=== PATIENT | female | born 1930 ===

== ENCOUNTER 2018-02-17 03:57 | Inpatient (IN) | payer MEDICARE, MEDICAID ==
[2018-02-17] MEDS ORDERED: Azithromycin 500mg/250ML NS 500 MG/250 ML BAG IV STA (04:19)
[2018-02-17] MEDS ORDERED: cefTRIAXone IV 1 gm in Dextros 50 ML IV STA (04:19)
[2018-02-17] MEDS ORDERED: Sodium Chloride 0.9% 1,000 ML IV ONE (04:19)
[2018-02-17] MEDS ORDERED: Promethazine/Cod 6.25mg-10mg/5ml Syr UD PO STA (04:20)
[2018-02-17] MEDS ORDERED: Albuterol 0.083% Inhal Sol (2.5 mg/3 mL) UD IH STA (04:34)
[2018-02-17] MEDS ORDERED: Albuterol 0.083% Inhal Sol (2.5 mg/3 mL) UD ONE (04:46)
--- NOTE | 2018-02-17 04:46 | C.PDOC ---
History Of Present Illness <Abbey Shaw - Last Filed: 02/17/18 06:16> <Nicole Shipman - Last Filed: 02/17/18 06:46> 87 yo female w/PMhx of CHF, CAD, NIDDM, PVD s/p femoral bypass, visits from [place], come in accompanied by family member for evaluation of cold sx for past 2 days associated with malaise, subjective fever, dry cough. As per family , since early today developed some chest tightness with cough, (+) intermittent wheezing. Similar sx family member as well. Otherwise, pt denies high fever, dizziness, neck pain, drooling, dysphagia, dyspnea, chest pain, palpitation, diaphoresis, abd. pain, N/V, back pain, UTI sx. Ambulate to Ed for evaluation, not in any apparent distress. Occasional dry cough noted. (Abbey Shaw) History Per: Patient, Family Onset/Duration Of Symptoms: Gradual <Abbey Shaw - Last Filed: 02/17/18 06:16> <Nicole Shipman - Last Filed: 02/17/18 06:46> Time Seen by Provider: 02/17/18 04:18 Chief Complaint (Nursing): Fever Past Medical History Reviewed: Vital Signs - Medical History PMH: CAD, CHF, Dementia, Diabetes, HTN, Hypercholesterolemia Family History: States: No Known Family Hx - Social History Hx Tobacco Use: No Hx Alcohol Use: No Hx Substance Use: No - Immunization History Hx Tetanus Toxoid Vaccination: No Hx Influenza Vaccination: No Hx Pneumococcal Vaccination: Yes <Abbey Shaw - Last Filed: 02/17/18 06:16> Vital Signs: Last Vital Signs Temp 99 F 02/17/18 04:05 Pulse 96 H 02/17/18 04:05 Resp 20 02/17/18 04:05 BP 125/77 02/17/18 04:05 Pulse Ox 96 02/17/18 06:21 Review Of Systems Except As Marked, All Systems Reviewed And Found Negative. Constitutional: Positive for: Fever, Malaise Eyes: Negative for: Vision Change ENT: Positive for: Nose Discharge, Nose Congestion. Negative for: Ear Discharge , Throat Swelling Cardiovascular: Negative for: Chest Pain, Palpitations, Orthopnea, Edema, Light Headedness Respiratory: Positive for: Cough, Wheezing. Negative for: Shortness of Breath, Hemoptysis, SOB with Excertion, Sputum Gastrointestinal: Negative for: Nausea, Vomiting, Abdominal Pain, Diarrhea Genitourinary: Negative for: Dysuria Musculoskeletal: Negative for: Neck Pain, Back Pain Skin: Negative for: Rash Neurological: Negative for: Altered Mental Status, Headache, Dizziness <Abbey Shaw - Last Filed: 02/17/18 06:16> Physical Exam - Physical Exam Appears: Well, Non-toxic, No Acute Distress Skin: Normal Color, Warm, Dry, No Rash Head: Normacephalic Eye(s): bilateral: PERRL Ear(s): Bilateral: Normal Nose: No Flaring, Discharge (B/L nasal congestion with scant clear rhinorrhea) Oral Mucosa: Moist, No Drooling Tongue: Normal Appearing Throat: Erythema (mild B/L), No Exudate, No Drooling Neck: Trachea Midline, Supple Cardiovascular: Rhythm Regular, No Murmur, No JVD, Other ((-) carotid bruits B/L ) Respiratory: No Decreased Breath Sounds, No Accessory Muscle Use, No Stridor, Wheezing (diffuse B/L expiratory wheezing. BS equal B/L) Gastrointestinal/Abdominal: Soft, No Tenderness, No Distention, No Guarding Back: No CVA Tenderness Extremity: Normal ROM, No Pedal Edema, No Deformity, No Swelling Neurological/Psych: Oriented x3, Normal Speech <JerrodJaye gonzaleznika - Last Filed: 02/17/18 06:16> ED Course And Treatment - Laboratory Results Result Diagrams: 02/17/18 04:50 02/17/18 04:50 Lab Interpretation: Abnormal ECG: Interpreted By Me, Viewed By Me ECG Rhythm: Sinus Rhythm O2 Sat by Pulse Oximetry: 96 Pulse Ox Interpretation: Normal - Radiology CXR: Interpreted by Me, Viewed By Me CXR Interpretation: Yes: Infiltrates (LLL?), Cardiomegaly Progress Note: On re-eval, pt remained unchanges, still c/o chest tightness. Remained afebrile, hemodynamicaly stable. Lungs: (+) mild improvement B/L exp wheezing, BS equal B/L. CVS: (+)S1S2, reg. Neurologicaly intact. Blood owrk review, no acute leukocytosis, dehydration, chr. anemia. CXR: (+) cardiomegaly , LLQ gera infiltrate? case discussed with and admission arranged. <Abbey Shaw - Last Filed: 02/17/18 06:16> - Laboratory Results Result Diagrams: 02/17/18 04:50 02/17/18 04:50 <Nicole Shipman - Last Filed: 02/17/18 06:46> Disposition - Disposition Disposition Time: 06:16 <Abbey Shaw - Last Filed: 02/17/18 06:16> <Nicole Shipman - Last Filed: 02/17/18 06:46> - Disposition Disposition: HOSPITALIZED Condition: STABLE Forms: [employer] (Citizen Of [place]) - Clinical Impression Clinical Impression: Pneumonia
[2018-02-17] MEDS ORDERED: cefTRIAXone IV 1 gm in Dextros 50 ML IVPB ONE (04:52)
[2018-02-17 04:57] LABS: URINE BILIRUBIN NEGATIVE (NEGATIVE); URINE BLOOD NEGATIVE (NEGATIVE); URINE CLARITY Clear (Clear); URINE COLOR Yellow (YELLOW); URINE GLUCOSE (UA) NORMAL (Normal); URINE LEUKOCYTE ESTERASE NEG Leu/uL (Negative); URINE PROTEIN NEGATIVE (NEGATIVE); URINE UROBILINOGEN NORMAL mg/dL (0.2-1.0)
[2018-02-17 04:59] LABS: BASO % 0.6 % (0.0-2.0); EOS # 0.4 K/uL (0.0-0.7); EOS % 4.5 % (0.0-4.0); HEMOGLOBIN 10.9 g/dL (11.0-16.0); LYMPH # 0.9 K/uL (1.0-4.3); LYMPH % 11.1 % (20.0-40.0); MEAN CELL VOLUME 97.1 fL (81.0-99.0); MEAN CORPUSCULAR HEMOGLOBIN 32.8 pg (27.0-31.0); MEAN CORPUSCULAR HGB CONC 33.8 g/dL (33.0-37.0); MEAN PLATELET VOLUME 8.6 fL (7.2-11.7); MONO % 12.8 % (0.0-10.0); NEUT # 5.6 K/uL (1.8-7.0); RBC 3.33 Mil/uL (3.80-5.20); RED CELL DISTRIBUTION WIDTH 13.6 % (11.5-14.5); WHITE BLOOD COUNT 7.9 K/uL (4.8-10.8)
[2018-02-17 05:08] LABS: ALB/GLOB RATIO 1.4 (1.0-2.1); ALBUMIN 4.2 g/dL (3.5-5.0); CALCIUM 8.2 mg/dl (8.6-10.4)
[2018-02-17] MEDS ORDERED: Promethazine/Cod 6.25mg-10mg/5ml Syr UD ONE (05:12)
--- NOTE | 2018-02-17 07:19 | CP.PCM.PN ---
Subjective - Date & Time of Evaluation Date of Evaluation: 02/17/18 Objective - Vital Signs/Intake and Output Vital Signs (last 24 hours): Temp Pulse Resp BP Pulse Ox 99 F 96 H 20 125/77 96 02/17/18 04:05 02/17/18 04:05 02/17/18 04:05 02/17/18 04:05 02/17/18 06:21 - Labs Labs: 02/17/18 04:50 02/17/18 04:50
[2018-02-17 07:58] VITALS: RESP 20
--- NOTE | 2018-02-17 09:59 | RAD ---
HISTORY: Pneumonia COMPARISON: No prior. TECHNIQUE: Chest PA and lateral FINDINGS: LUNGS: No active pulmonary disease. PLEURA: No significant pleural effusion identified. No pneumothorax apparent. CARDIOVASCULAR: Normal. OSSEOUS STRUCTURES: No significant abnormalities. VISUALIZED UPPER ABDOMEN: Normal. OTHER FINDINGS: None. IMPRESSION: No active disease.
--- NOTE | 2018-02-17 09:59 | CP.PCM.HP ---
History of Present Illness - History of Present Illness History of Present Illness: Patient seen and examined at approx 7:58 in Rm [id number]. Son present bedside. Family is unsure of Code status at this time. CC: I have a cold HPI: 87 year old female with past medical history significant for CHF, DM, PVD s /p femoral bypass, HTN, Hypercholesterolemia and dementia presents with complaints of cough and cold symptoms for the past 4 days. Patient was accompanied with son who helped supplement some of the history. Patient admits to a cough with productive white sputum. She admits to chest discomfort when she coughs. She has been in the area for approximately two weeks- visiting from [place]. She admits to nausea and an episode of non-bloody, nonbillious vomiting overnight. She denies fevers, chills, headaches, abdominal discomfort, or changes in bowel movements at this time. She denies recent sick contacts. PMHx- as stated above PSHx- appendectomy, cardiac cath in 2017 Fam Hx-Brother has DM, Renal disease runs in the family Medications- Ranitidine, Norvasc, Valsartan, Coreg, Lipitor, Fosamax, Januvia, Lasix, ASA Social- Denies tobacco, alcohol or illicit drug use Allergies- NKDA PMD- Unsure of name ( located in [place]) Present on Admission - Present on Admission Any Indicators Present on Admission: No Review of Systems - Review of Systems Systems not reviewed;Unavailable: Language Barrier - Constitutional Constitutional: absent: Fever, Headache - Cardiovascular Cardiovascular: Dyspnea - Respiratory Respiratory: Cough, Pain with Coughing. absent: Hemoptysis - Gastrointestinal Gastrointestinal: Nausea, Vomiting - Musculoskeletal Musculoskeletal: absent: Muscle Weakness, Myalgias - Integumentary Integumentary: absent: Rash, Skin Pain - Neurological Neurological: Memory Loss - Hematologic/Lymphatic Hematologic: absent: Easy Bleeding, Easy Bruising Past Patient History - Infectious Disease Hx of Infectious Diseases: None - Past Social History Smoking Status: Never Smoked Alcohol: None Drugs: Denies - CARDIAC Hx Congestive Heart Failure: Yes Hx Hypercholesterolemia: Yes Hx Hypertension: Yes - NEUROLOGICAL Hx Dementia: Yes - RENAL Hx Renal Failure: Yes - PSYCHIATRIC Hx Substance Use: No - SURGICAL HISTORY Hx Cardiac Catheterization: Yes - ANESTHESIA Hx Anesthesia: Yes Meds Allergies/Adverse Reactions: Allergies Allergy/AdvReac Type Severity Reaction Status Date / Time No Known Allergies Allergy Verified 02/17/18 04:15 Physical Exam - Constitutional Appears: Non-toxic, No Acute Distress - Head Exam Head Exam: ATRAUMATIC, NORMAL INSPECTION - Eye Exam Eye Exam: EOMI, Normal appearance Pupil Exam: NORMAL ACCOMODATION - ENT Exam ENT Exam: Mucous Membranes Moist - Neck Exam Neck exam: Positive for: Full Rom - Respiratory Exam Respiratory Exam: Rales, NORMAL BREATHING PATTERN. absent: Wheezes - Cardiovascular Exam Cardiovascular Exam: +S1, +S2, Systolic Murmur. absent: Tachycardia - GI/Abdominal Exam GI & Abdominal Exam: Soft. absent: Firm, Guarding, Tenderness - Extremities Exam Extremities exam: Positive for: full ROM - Back Exam Back exam: FULL ROM - Neurological Exam Neurological exam: Alert - Psychiatric Exam Psychiatric exam: Normal Affect, Normal Mood - Skin Skin Exam: Normal Color, Warm Results - Vital Signs Recent Vital Signs: Last Vital Signs Temp 98.5 F 02/17/18 07:57 Pulse 75 02/17/18 07:57 Resp 20 02/17/18 07:57 BP 117/64 02/17/18 07:57 Pulse Ox 96 02/17/18 07:57 - Labs Result Diagrams: 02/17/18 04:50 02/17/18 04:50 Labs: Laboratory Results - last 24 hr 02/17/18 02/17/18 02/17/18 04:50 04:50 04:50 WBC 7.9 RBC 3.33 L Hgb 10.9 L Hct 32.3 L MCV 97.1 MCH 32.8 H MCHC 33.8 RDW 13.6 Plt Count 195 MPV 8.6 Neut % (Auto) 71.0 Lymph % (Auto) 11.1 L Winkler % (Auto) 12.8 H Eos % (Auto) 4.5 H Baso % (Auto) 0.6 Neut # (Auto) 5.6 Lymph # (Auto) 0.9 L [place]ink[place] # (Auto) 1.0 H Eos # (Auto) 0.4 Baso # (Auto) 0.0 Sodium 139 Potassium 5.7 H Chloride 107 Carbon Dioxide 20 L Anion Gap 18 BUN 37 H Creatinine 1.8 H Est GFR ( Amer) 32 Est GFR (Non-Af Amer) 27 Random Glucose 204 H Lactic Acid Calcium 8.2 L Total Bilirubin 0.9 AST 26 ALT 26 Alkaline Phosphatase 150 H Total Protein 7.2 Albumin 4.2 Globulin 3.0 Albumin/Globulin Ratio 1.4 Urine Color Yellow Urine Clarity Clear Urine pH 5.0 Ur Specific [place] 1.014 Urine Protein Negative Urine Glucose (UA) Normal Urine Ketones Negative Urine Blood Negative Urine Nitrate Negative Urine Bilirubin Negative Urine Urobilinogen Normal Ur Leukocyte Esterase Neg Urine WBC (Auto) 2 Urine RBC (Auto) < 1 02/17/18 04:50 WBC RBC Hgb Hct MCV MCH MCHC RDW Plt Count MPV Neut % (Auto) Lymph % (Auto) Winkler % (Auto) Eos % (Auto) Baso % (Auto) Neut # (Auto) Lymph # (Auto) Winkler # (Auto) Eos # (Auto) Baso # (Auto) Sodium Potassium Chloride Carbon Dioxide Anion Gap BUN Creatinine Est GFR ( Amer) Est GFR (Non-Af Amer) Random Glucose Lactic Acid 1.3 Calcium Total Bilirubin AST ALT Alkaline Phosphatase Total Protein Albumin Globulin Albumin/Globulin Ratio Urine Color Urine Clarity Urine pH Ur Specific [place] Urine Protein Urine Glucose (UA) Urine Ketones Urine Blood Urine Nitrate Urine Bilirubin Urine Urobilinogen Ur Leukocyte Esterase Urine WBC (Auto) Urine RBC (Auto) Assessment & Plan (1) Dyspnea Assessment and Plan: Considerations for viral etiology vs reactive airway type presentation or CHF exacerabtion. Duonebs Q4 PRN CXR- no signs of active disease. Received a dose of Ceftriaxone and Azithromycin for empiric treatment in the ER. CURB 65 Score for Pneumonia- 1 which is indicative of low risk of pneumonia severity Having received antibiotics today, will decide whether to continue onwards with abx therapy in light of no signs of infiltrative disease on imaging, no white count. Patient with complaints of clear/white normal colored sputum. Likely viral etiology. Will monitor Pulm consult in place for Dr. Tracey- F/U. F/U sputum cultures. BNP elevated. On Lasix 20 mg PO daily (Home med). Will assess need for echo following Status: Acute (2) Cough Assessment and Plan: Refer to above. Guaifenesin/DM- For cough Status: Acute (3) HTN (hypertension) Assessment and Plan: Normotensive Monitor Continue home med Norvasc 5 mg daily, Coreg 12.5 mg PO daily. Will switch Valsartan (NF) to Losartan in-house Status: Chronic (4) CHF (congestive heart failure) Assessment and Plan: Refer to above. BNP elevated. F/U Echo CXR- no apparent signs of vascular congestion, cardiomegaly or effusions Continue Lasix 20 mg PO daily Status: Chronic (5) Diabetes Assessment and Plan: Accuchecks ISS F/U A1c Status: Chronic (6) Hypercholesteremia Assessment and Plan: Switch Lipitor ( NF) to restor 20 mg HS F/U Lip[employer] Status: Acute (7) Hyperkalemia Assessment and Plan: Elevated at 5.7 Patient has received Duonebs treatment. Will recheck BMP at 13:00. If elevated still, consider Kayexelate. Monitor Status: Acute (8) Prophylactic measure Assessment and Plan: Heparin Q12 SC Pepcid 20 mg PO daily Status: Acute
[2018-02-17] MEDS ORDERED: guaiFENesin DM 100 mg-10 mg/5 ml UD PO PRN (10:23)
[2018-02-17] MEDS: (Novolog) Insulin Aspart, Recombinant 100 u/ml 10 ml vial SC SCH ×3 (12:41→22:23)
[2018-02-17 13:34] LABS: INFLUENZA A B POS FOR INFLUENZA A (NEGATIVE)
--- NOTE | 2018-02-17 13:43 | CP.PCM.CON ---
History of Present Illness - History of Present Illness History of Present Illness: reason for consultation: cough and shortness of breath 87-year-old female with history of coronary artery disease, CHF, diabetes,, hypertension presented to emergency with four-day history dry cough associated with shortness of breath and chills. Chest x-ray donein the emergency room showed no lung infiltrate. PSHx- appendectomy, cardiac cath in 2017 Fam Hx-Brother has DM, Renal disease runs in the family Medications- Ranitidine, Norvasc, Valsartan, Coreg, Lipitor, Fosamax, Januvia, Lasix, ASA Social- Denies tobacco, alcohol or illicit drug use Allergies- NKDA Review of Systems - Review of Systems All systems: reviewed and no additional remarkable complaints except (shortness of breath and cough) Past Patient History - Infectious Disease Hx of Infectious Diseases: None - Past Social History Smoking Status: Never Smoked Alcohol: None Drugs: Denies - CARDIAC Hx Congestive Heart Failure: Yes Hx Hypercholesterolemia: Yes Hx Hypertension: Yes - NEUROLOGICAL Hx Dementia: Yes - RENAL Hx Renal Failure: Yes - PSYCHIATRIC Hx Substance Use: No - SURGICAL HISTORY Hx Cardiac Catheterization: Yes - ANESTHESIA Hx Anesthesia: Yes Meds Allergies/Adverse Reactions: Allergies Allergy/AdvReac Type Severity Reaction Status Date / Time No Known Allergies Allergy Verified 02/17/18 04:15 - Medications Medications: Current Medications Albuterol/Ipratropium (Duoneb 3 Mg/0.5 Mg (3 Ml) Ud) 3 ml INH RQ4 PRN PRN Reason: Wheezing Amlodipine Besylate (Norvasc) 5 mg PO DAILY [facility] Aspirin (Ecotrin) 81 mg PO DAILY [facility] Carvedilol (Coreg) 12.5 mg PO BID [facility] Famotidine (Pepcid) 20 mg PO DAILY [facility] Furosemide (Lasix) 20 mg PO DAILY [facility] Guaifenesin/Dextromethorphan (Robitussin Dm) 5 ml PO Q4H PRN PRN Reason: Cough Heparin Sodium (Porcine) (Heparin) 5,000 units SC Q12 [facility] Last Admin: 02/17/18 12:41 Dose: 5,000 units Insulin Aspart (Novolog) 0 unit SC ACHS [facility] PRN Reason: Protocol Last Admin: 02/17/18 12:41 Dose: 8 unit Losartan Potassium (Cozaar) 100 mg PO DAILY [facility] Rosuvastatin Calcium (Crestor) 20 mg PO HS [facility] Physical Exam - Head Exam Head Exam: ATRAUMATIC, NORMOCEPHALIC - ENT Exam ENT Exam: Mucous Membranes Moist - Neck Exam Neck exam: Positive for: Normal Inspection - Respiratory Exam Respiratory Exam: Clear to Auscultation Bilateral - Cardiovascular Exam Cardiovascular Exam: REGULAR RHYTHM Results - Vital Signs Recent Vital Signs: Last Vital Signs Temp 98.5 F 02/17/18 07:57 Pulse 75 02/17/18 07:57 Resp 20 02/17/18 07:57 BP 117/64 02/17/18 07:57 Pulse Ox 96 02/17/18 07:57 - Labs Result Diagrams: 02/17/18 04:50 02/17/18 04:50 Labs: Laboratory Results - last 24 hr 02/17/18 02/17/18 02/17/18 04:50 04:50 04:50 WBC 7.9 RBC 3.33 L Hgb 10.9 L Hct 32.3 L MCV 97.1 MCH 32.8 H MCHC 33.8 RDW 13.6 Plt Count 195 MPV 8.6 Neut % (Auto) 71.0 Lymph % (Auto) 11.1 L [place] % (Auto) 12.8 H Eos % (Auto) 4.5 H Baso % (Auto) 0.6 Neut # (Auto) 5.6 Lymph # (Auto) 0.9 L [place] # (Auto) 1.0 H Eos # (Auto) 0.4 Baso # (Auto) 0.0 Sodium 139 Potassium 5.7 H Chloride 107 Carbon Dioxide 20 L Anion Gap 18 BUN 37 H Creatinine 1.8 H Est GFR ( Amer) 32 Est GFR (Non-Af Amer) 27 POC Glucose (mg/dL) Random Glucose 204 H Lactic Acid Calcium 8.2 L Total Bilirubin 0.9 AST 26 ALT 26 Alkaline Phosphatase 150 H NT-Pro-B Natriuret Pep 1160 H Total Protein 7.2 Albumin 4.2 Globulin 3.0 Albumin/Globulin Ratio 1.4 Urine Color Yellow Urine Clarity Clear Urine pH 5.0 Ur Specific [place] 1.014 Urine Protein Negative Urine Glucose (UA) Normal Urine Ketones Negative Urine Blood Negative Urine Nitrate Negative Urine Bilirubin Negative Urine Urobilinogen Normal Ur Leukocyte Esterase Neg Urine WBC (Auto) 2 Urine RBC (Auto) < 1 Influenza Typ A,B (EIA) 02/17/18 02/17/1802/17/18 04:50 11:08 11:09 WBC RBC Hgb Hct MCV MCH MCHC RDW Plt Count MPV Neut % (Auto) Lymph % (Auto) [place] % (Auto) Eos % (Auto) Baso % (Auto) Neut # (Auto) Lymph # (Auto) [place] # (Auto) Eos # (Auto) Baso # (Auto) Sodium Potassium Chloride Carbon Dioxide Anion Gap BUN Creatinine Est GFR ( Amer) Est GFR (Non-Af Amer) POC Glucose (mg/dL) 353 H Random Glucose Lactic Acid 1.3 Calcium Total Bilirubin AST ALT Alkaline Phosphatase NT-Pro-B Natriuret Pep Total Protein Albumin Globulin Albumin/Globulin Ratio Urine Color Urine Clarity Urine pH Ur Specific [place] Urine Protein Urine Glucose (UA) Urine Ketones Urine Blood Urine Nitrate Urine Bilirubin Urine Urobilinogen Ur Leukocyte Esterase Urine WBC (Auto) Urine RBC (Auto) Influenza Typ A,B (EIA) Pos for influenza a H Assessment & Plan (1) Cough Assessment and Plan: consistent with bronchitis Antibiotics Bronchodilators Short course of steroids Status: Acute (2) Dyspnea Status: Acute (3) CHF (congestive heart failure) Status: Chronic
[2018-02-17 13:52] LABS: CALCIUM 7.9 mg/dl (8.6-10.4)
[2018-02-17] MEDS: MethylPREDNISolone 40 mg Vial IV SCH ×2 (14:37→21:38)
[2018-02-17] MEDS: Azithromycin 500 MG in Sodium Chloride 0.9% 250 ML IVPB SCH (14:37)
[2018-02-17 15:03] LABS: LEGIONELLA AG URINE NEGATIVE (NEGATIVE)
[2018-02-17 15:11] LABS: MYCOPLASMA PNEUMONIAE IGM NEGATIVE (NEGATIVE)
--- NOTE | 2018-02-17 17:31 | CARD ---
APPROVED REPORT EXAM: Two-dimensional and M-mode echocardiogram with Doppler and color Doppler. Other Information Quality : GoodRhythm : INDICATION Dyspnea 2D DIMENSIONS IVSd1.1 (0.7-1.1cm)LVDd4.9 (3.9-5.9cm) PWd1.2 (0.7-1.1cm)LVDs3.1 (2.5-4.0cm) FS (%) 37.6 %LVEF (%)67.4 (>50%) M-Mode DIMENSIONS Left Atrium (MM)4.30 (2.5-4.0cm)IVSd1.16 (0.7-1.1cm) Aortic Root3.03 (2.2-3.7cm)LVDd5.46 (4.0-5.6cm) Aortic Cusp Exc.1.87 (1.5-2.0cm)PWd1.13 (0.7-1.1cm) FS (%) 33 %LVDs3.66 (2.0-3.8cm) LVEF (%)61 (>50%) Mitral Valve MV E [id number]/sE/A ratio0.0 TDI E/Lateral E'0.0E/Medial E'0.0 Tricuspid Valve TR Peak [id number] Peak [id number] LEFT VENTRICLE The left ventricle is normal size. There is mild concentric left ventricular hypertrophy. The left ventricular function is low normal. The left ventricular ejection fraction is about 50% The septum is hypokinetic. The left ventricular diastolic function is indeterminate. No left ventricle thrombus noted on this study. There is no ventricular septal defect visualized. There is no left ventricular aneurysm. There is no mass noted in the left ventricle. RIGHT VENTRICLE The right ventricle is normal size. There is normal right ventricular wall thickness. The right ventricular systolic function is normal. ATRIA The left atrium size is normal. The right atrium size is normal. The interatrial septum is intact with no evidence for an atrial septal defect. AORTIC VALVE The aortic valve is normal in structure and function. No aortic regurgitation is present. There is no aortic valvular stenosis. There is no aortic valvular vegetation. MITRAL VALVE The mitral valve is normal in structure and function. There is no evidence of mitral valve prolapse. There is no mitral valve stenosis. There is no mitral valve regurgitation noted. TRICUSPID VALVE The tricuspid valve is normal in structure and function. There is mild tricuspid valve regurgitation noted. Estimated PA systolic pressure is 55 mm Hg. There is no tricuspid valve prolapse or vegetation. There is no tricuspid valve stenosis. PULMONIC VALVE The pulmonary valve is normal in structure and function. There is no pulmonic valvular regurgitation. There is no pulmonic valvular stenosis. GREAT VESSELS The aortic root is normal in size. The ascending aorta is normal in size. The pulmonary artery is normal. The IVC is dilated, not well seen. PERICARDIAL EFFUSION The pericardium appears normal. There is no pleural effusion. <Conclusion> Low normal left ventricular systolic function with hypokinetic septum. Moderate pulmonary HTN.
[2018-02-18] MEDS ORDERED: (Novolog) Insulin Aspart, Recombinant 100 u/ml 10 ml vial SC ONE (02:27)
[2018-02-18] MEDS: MethylPREDNISolone 40 mg Vial IV SCH ×3 (05:25→21:38)
[2018-02-18 08:07] LABS: BASO % 0.1 % (0.0-2.0); HEMOGLOBIN 9.8 g/dL (11.0-16.0); LYMPH % 8.1 % (20.0-40.0); MEAN CELL VOLUME 95.8 fL (81.0-99.0); MEAN CORPUSCULAR HEMOGLOBIN 32.9 pg (27.0-31.0); MEAN CORPUSCULAR HGB CONC 34.3 g/dL (33.0-37.0); MEAN PLATELET VOLUME 9.3 fL (7.2-11.7); MONO # 0.3 K/uL (0.0-0.8); MONO % 2.7 % (0.0-10.0); NEUT % 89.1 % (50.0-75.0); NRBC % 0.1 % (0.0-2.0); PLATELET COUNT 188 K/uL (130-400); RBC 2.98 Mil/uL (3.80-5.20); RED CELL DISTRIBUTION WIDTH 13.3 % (11.5-14.5); WHITE BLOOD COUNT 12.4 K/uL (4.8-10.8)
[2018-02-18] MEDS: (Novolog) Insulin Aspart, Recombinant 100 u/ml 10 ml vial SC SCH ×4 (08:15→21:39)
[2018-02-18 08:35] LABS: ALB/GLOB RATIO 1.3 (1.0-2.1); ALBUMIN 3.6 g/dL (3.5-5.0); CALCIUM 7.9 mg/dl (8.6-10.4)
[2018-02-18 09:18] LABS: BANDS 2 % (0-2); LYMPHOCYTE 9 % (20-40); MONOCYTE 2 % (0-10); NEUTROPHIL 87 % (50-75); PLATELET ESTIMATE NORMAL (NORMAL); TOTAL CELLS COUNTED 100
[2018-02-18 09:19] LABS: ANISOCYTOSIS SLIGHT; BURR CELLS SLIGHT; HYPOCHROMIC SLIGHT; OVALOCYTES SLIGHT; POIKILOCYTOSIS SLIGHT; POLYCHROMIC SLIGHT
[2018-02-18 09:21] LABS: GIANT PLATELETS PRESENT; LARGE PLATELETS PRESENT; SCHISTOCYTES SLIGHT
[2018-02-18 09:22] LABS: TOXIC GRANULATION PRESENT
[2018-02-18] MEDS ORDERED: Sod Polystyrene Sulf 15 gm/60 ml Susp PO ONE (09:30)
--- NOTE | 2018-02-18 12:52 | CP.PCM.PN ---
Subjective - Date & Time of Evaluation Date of Evaluation: 02/18/18 Time of Evaluation: 11:00 - Subjective Subjective: patient seen and examined cough, shortness of breath much improved Respiratory isolation for influenza afebrile Wants to go home Objective - Vital Signs/Intake and Output Vital Signs (last 24 hours): Temp Pulse Resp BP Pulse Ox 98.2 F 93 H 20 148/76 96 02/18/18 07:45 02/18/18 07:45 02/18/18 07:45 02/18/18 10:23 02/18/18 07:45 Intake and Output: 02/18/18 02/18/18 06:59 18:59 Intake Total 690 Output Total 3 Balance 687 - Medications Medications: Current Medications Albuterol/Ipratropium (Duoneb 3 Mg/0.5 Mg (3 Ml) Ud) 3 ml INH RQ4 PRN PRN Reason: Wheezing Amlodipine Besylate (Norvasc) 5 mg PO DAILY [facility] Last Admin: 02/18/18 10:22 Dose: 5 mg Aspirin (Ecotrin) 81 mg PO DAILY [facility] Last Admin: 02/18/18 10:23 Dose: 81 mg Carvedilol (Coreg) 12.5 mg PO BID [facility] Last Admin: 02/18/18 10:23 Dose: 12.5 mg Famotidine (Pepcid) 20 mg PO DAILY [facility] Last Admin: 02/18/18 10:23 Dose: 20 mg Furosemide (Lasix) 20 mg PO DAILY [facility] Last Admin: 02/18/18 10:22 Dose: 20 mg Guaifenesin/Dextromethorphan (Robitussin Dm) 5 ml PO Q4H PRN PRN Reason: Cough Heparin Sodium (Porcine) (Heparin) 5,000 units SC Q12 [facility] Last Admin: 02/18/18 10:22 Dose: 5,000 units Azithromycin 500 mg/ Sodium (Chloride) 250 mls @ 166.667 mls/hr IVPB Q24H [facility] PRN Reason: Protocol Last Admin: 02/17/18 14:37 Dose: 166.667 mls/hr Insulin Aspart (Novolog) 0 unit SC ACHS [facility] PRN Reason: Protocol Last Admin: 02/18/18 11:47 Dose: 10 unit Losartan Potassium (Cozaar) 100 mg PO DAILY [facility] Last Admin: 02/18/18 10:23 Dose: 100 mg Methylprednisolone (Solu-Medrol) 40 mg IV Q8 [facility] Last Admin: 02/18/18 05:25 Dose: 40 mg Oseltamivir Phosphate (Tamiflu Cap) 75 mg PO BID [facility] PRN Reason: Protocol Stop: 02/22/18 17:08 Last Admin: 02/18/18 10:23 Dose: 75 mg Rosuvastatin Calcium (Crestor) 20 mg PO HS [facility] Last Admin: 02/17/18 21:37 Dose: 20 mg - Labs Labs: 02/18/18 07:46 02/18/18 07:46 - Head Exam Head Exam: ATRAUMATIC, NORMOCEPHALIC - ENT Exam ENT Exam: Mucous Membranes Moist - Neck Exam Neck Exam: Normal Inspection - Respiratory Exam Respiratory Exam: Clear to Ausculation Bilateral - Cardiovascular Exam Cardiovascular Exam: REGULAR RHYTHM - GI/Abdominal Exam GI & Abdominal Exam: Soft, Normal Bowel Sounds Assessment and Plan (1) Influenza A Assessment & Plan: continue tamiflu Continue isolation Status: Acute (2) Cough Status: Acute (3) Dyspnea Status: Acute (4) CHF (congestive heart failure) Status: Chronic
[2018-02-18] MEDS: Azithromycin 500 MG in Sodium Chloride 0.9% 250 ML IVPB SCH (13:20)
--- NOTE | 2018-02-18 13:23 | CP.PCM.PN ---
Subjective - Date & Time of Evaluation Date of Evaluation: 02/18/18 Time of Evaluation: 07:00 - Subjective Subjective: PYG2- Progress note for Dr. Perez Patient seen and examined at bedside and in no acute distress. Patient says she still doesn't feel well, but is better than yesterday. Patient is still coughing. Patient denies chest pain, abdominal pain, nausea, vomiting, constipation, or diarrhea. Objective - Vital Signs/Intake and Output Vital Signs (last 24 hours): Temp Pulse Resp BP Pulse Ox 98.2 F 93 H 20 148/76 96 02/18/18 07:45 02/18/18 07:45 02/18/18 07:45 02/18/18 10:23 02/18/18 07:45 Intake and Output: 02/18/18 02/18/18 06:59 18:59 Intake Total 690 Output Total 3 Balance 687 - Medications Medications: Current Medications Albuterol/Ipratropium (Duoneb 3 Mg/0.5 Mg (3 Ml) Ud) 3 ml INH RQ4 PRN PRN Reason: Wheezing Amlodipine Besylate (Norvasc) 5 mg PO DAILY [facility] Last Admin: 02/18/18 10:22 Dose: 5 mg Aspirin (Ecotrin) 81 mg PO DAILY [facility] Last Admin: 02/18/18 10:23 Dose: 81 mg Carvedilol (Coreg) 12.5 mg PO BID [facility] Last Admin: 02/18/18 10:23 Dose: 12.5 mg Famotidine (Pepcid) 20 mg PO DAILY [facility] Last Admin: 02/18/18 10:23 Dose: 20 mg Furosemide (Lasix) 20 mg PO DAILY [facility] Last Admin: 02/18/18 10:22 Dose: 20 mg Guaifenesin/Dextromethorphan (Robitussin Dm) 5 ml PO Q4H PRN PRN Reason: Cough Heparin Sodium (Porcine) (Heparin) 5,000 units SC Q12 [facility] Last Admin: 02/18/18 10:22 Dose: 5,000 units Azithromycin 500 mg/ Sodium (Chloride) 250 mls @ 166.667 mls/hr IVPB Q24H [facility] PRN Reason: Protocol Last Admin: 02/17/18 14:37 Dose: 166.667 mls/hr Insulin Aspart (Novolog) 0 unit SC ACHS [facility] PRN Reason: Protocol Last Admin: 02/18/18 11:47 Dose: 10 unit Losartan Potassium (Cozaar) 100 mg PO DAILY [facility] Last Admin: 02/18/18 10:23 Dose: 100 mg Methylprednisolone (Solu-Medrol) 40 mg IV Q8 [facility] Last Admin: 02/18/18 05:25 Dose: 40 mg Oseltamivir Phosphate (Tamiflu Cap) 75 mg PO BID [facility] PRN Reason: Protocol Stop: 02/22/18 17:08 Last Admin: 02/18/18 10:23 Dose: 75 mg Rosuvastatin Calcium (Crestor) 20 mg PO HS [facility] Last Admin: 02/17/18 21:37 Dose: 20 mg - Labs Labs: 02/18/18 07:46 02/18/18 07:46 - Constitutional Appears: Non-toxic, No Acute Distress - Head Exam Head Exam: ATRAUMATIC, NORMAL INSPECTION, NORMOCEPHALIC Assessment and Plan - Assessment and Plan (Free Text) Assessment: (1) Dyspnea Assessment and Plan: 2/2 Flu Duonebs Q4 PRN CXR- no signs of active disease. Received a dose of Ceftriaxone and Azithromycin for empiric treatment in the ER. CURB 65 Score for Pneumonia- 1 which is indicative of low risk of pneumonia severity Having received antibiotics today, will decide whether to continue onwards with abx therapy in light of no signs of infiltrative disease on imaging, no white count. Patient with complaints of clear/white normal colored sputum. Likely viral etiology. Will monitor Pulm consult in place for Dr. Tracey- F/U. F/U sputum cultures. BNP elevated. On Lasix 20 mg PO daily (Home med). Will assess need for echo following Tamiflu 75mg po BID Azithromycin 500mg ivp q24h Solumedrol 40mg q12h (decreased from q8h) Status: Acute (2) Cough Assessment and Plan: Refer to above. Guaifenesin/DM- For cough Status: Acute (3) Renal Tubular Acidosis Decreased Losartan to 50mg po daily from 100mg po daily monitor K (4) HTN (hypertension) Assessment and Plan: Normotensive Monitor Continue home med Norvasc 5 mg daily, Coreg 12.5 mg PO daily. Will switch Valsartan (NF) to Losartan in-house Losartan decreased on 02/18 due to RTA, monitor BP Status: Chronic (5) CHF (congestive heart failure) Assessment and Plan: BNP elevated. Echo: LVEF 61, hypokinetic septum, moderate pulmonary hypertension CXR- no apparent signs of vascular congestion, cardiomegaly or effusions Continue Lasix 20 mg PO daily Status: Chronic (6) Diabetes Assessment and Plan: Accuchecks ISS F/U A1c Status: Chronic (7) Hypercholesteremia Assessment and Plan: Switch Lipitor ( NF) to restor 20 mg HS Lipid Panel: Triglycerides 45, Cholesterol 141, LDL 63, HDL 52 Monitor Status: Acute (8) Hyperkalemia Assessment and Plan: 2/2 RTA Elevated at 5.7, decreased to 5.4 Patient has received Duonebs treatment. Will recheck BMP given Kayexalate Decreased Losartan to 50mg po daily from 100mg po daily Monitor Status: Acute (9) Prophylactic measure Assessment and Plan: Heparin Q12 SC Pepcid 20 mg PO daily Status: Acute
[2018-02-18] MEDS: Albuterol-Ipratrop 3 mg / 0.5 (3 ml) UD INH PRN (15:53)
[2018-02-18 17:38] LABS: CALCIUM 7.8 mg/dl (8.6-10.4)
[2018-02-19 06:52] LABS: BASO # 0.1 K/uL (0.0-0.2); BASO % 0.6 % (0.0-2.0); LYMPH # 0.8 K/uL (1.0-4.3); LYMPH % 4.9 % (20.0-40.0); MEAN CELL VOLUME 96.5 fL (81.0-99.0); MEAN CORPUSCULAR HEMOGLOBIN 32.2 pg (27.0-31.0); MEAN CORPUSCULAR HGB CONC 33.3 g/dL (33.0-37.0); MEAN PLATELET VOLUME 9.7 fL (7.2-11.7); MONO # 0.3 K/uL (0.0-0.8); MONO % 2.1 % (0.0-10.0); NEUT # 15.3 K/uL (1.8-7.0); NEUT % 92.4 % (50.0-75.0); PLATELET COUNT 176 K/uL (130-400); RBC 3.12 Mil/uL (3.80-5.20); RED CELL DISTRIBUTION WIDTH 13.7 % (11.5-14.5); WHITE BLOOD COUNT 16.5 K/uL (4.8-10.8)
[2018-02-19 07:22] LABS: ALB/GLOB RATIO 1.3 (1.0-2.1); ALBUMIN 3.6 g/dL (3.5-5.0); CALCIUM 7.2 mg/dl (8.6-10.4)
[2018-02-19] MEDS: (Novolog) Insulin Aspart, Recombinant 100 u/ml 10 ml vial SC SCH ×4 (07:39→21:50)
[2018-02-19 08:37] LABS: BANDS 1 % (0-2); LYMPHOCYTE 5 % (20-40); MONOCYTE 2 % (0-10); NEUTROPHIL 92 % (50-75); PLATELET ESTIMATE NORMAL (NORMAL); TOTAL CELLS COUNTED 100
[2018-02-19 08:38] LABS: ANISOCYTOSIS SLIGHT; HYPOCHROMIC SLIGHT; OVALOCYTES SLIGHT; POIKILOCYTOSIS SLIGHT; POLYCHROMIC SLIGHT
[2018-02-19 08:44] LABS: LARGE PLATELETS PRESENT
[2018-02-19 08:45] LABS: TOXIC GRANULATION PRESENT
[2018-02-19] MEDS: MethylPREDNISolone 40 mg Vial IV SCH ×2 (09:25→21:50)
[2018-02-19] MEDS: Azithromycin 500 MG in Sodium Chloride 0.9% 250 ML IVPB SCH (13:10)
[2018-02-19 13:21] VITALS: O2SAT 95
--- NOTE | 2018-02-19 15:04 | CP.PCM.PN ---
Subjective - Date & Time of Evaluation Date of Evaluation: 02/19/18 Time of Evaluation: 07:00 - Subjective Subjective: PGY2- Progress note for Dr. Perez Patient seen and examined at bedside and in no acute distress. Patient says she feels much better. Patient is still coughing productive of yellow phlegm. Patient denies chest pain, abdominal pain, nausea, vomiting, constipation, or diarrhea. Objective - Vital Signs/Intake and Output Vital Signs (last 24 hours): Temp Pulse Resp BP Pulse Ox 98.4 F 84 20 109/65 95 02/19/18 07:00 02/19/18 07:00 02/19/18 07:00 02/19/18 09:26 02/19/18 07:00 Intake and Output: 02/19/18 02/19/18 06:59 18:59 Intake Total 540 410 Balance 540 410 - Medications Medications: Current Medications Albuterol/Ipratropium (Duoneb 3 Mg/0.5 Mg (3 Ml) Ud) 3 ml INH RQ4 PRN PRN Reason: Wheezing Last Admin: 02/18/18 15:53 Dose: 3 ml Amlodipine Besylate (Norvasc) 5 mg PO DAILY [facility] Last Admin: 02/19/18 09:26 Dose: 5 mg Aspirin (Ecotrin) 81 mg PO DAILY [facility] Last Admin: 02/19/18 09:26 Dose: 81 mg Carvedilol (Coreg) 12.5 mg PO BID [facility] Last Admin: 02/19/18 09:25 Dose: 12.5 mg Famotidine (Pepcid) 20 mg PO DAILY [facility] Last Admin: 02/19/18 09:25 Dose: 20 mg Furosemide (Lasix) 20 mg PO DAILY [facility] Last Admin: 02/19/18 09:26 Dose: 20 mg Guaifenesin/Dextromethorphan (Robitussin Dm) 5 ml PO Q4H PRN PRN Reason: Cough Heparin Sodium (Porcine) (Heparin) 5,000 units SC Q12 [facility] Last Admin: 02/19/18 09:26 Dose: 5,000 units Azithromycin 500 mg/ Sodium (Chloride) 250 mls @ 166.667 mls/hr IVPB Q24H [facility] PRN Reason: Protocol Last Admin: 02/19/18 13:10 Dose: 166.667 mls/hr Insulin Aspart (Novolog) 0 unit SC ACHS [facility] PRN Reason: Protocol Last Admin: 02/19/18 11:28 Dose: 12 units Losartan Potassium (Cozaar) 50 mg PO DAILY [facility] Last Admin: 02/19/18 09:25 Dose: 50 mg Methylprednisolone (Solu-Medrol) 40 mg IV Q12 [facility] Last Admin: 02/19/18 09:25 Dose: 40 mg Oseltamivir Phosphate (Tamiflu Cap) 75 mg PO BID [facility] PRN Reason: Protocol Stop: 02/22/18 17:08 Last Admin: 02/19/18 09:25 Dose: 75 mg Rosuvastatin Calcium (Crestor) 20 mg PO HS [facility] Last Admin: 02/18/18 21:38 Dose: 20 mg - Labs Labs: 02/19/18 06:45 02/19/18 06:45 - Constitutional Appears: Non-toxic, No Acute Distress - Head Exam Head Exam: ATRAUMATIC, NORMAL INSPECTION, NORMOCEPHALIC - Eye Exam Eye Exam: EOMI, Normal appearance - ENT Exam ENT Exam: Mucous Membranes Moist - Neck Exam Neck Exam: Full ROM - Respiratory Exam Respiratory Exam: Clear to Ausculation Bilateral, NORMAL BREATHING PATTERN. absent: Rales, Rhonchi, Wheezes, Respiratory Distress, Stridor - Cardiovascular Exam Cardiovascular Exam: REGULAR RHYTHM, RRR, +S1, +S2 - GI/Abdominal Exam GI & Abdominal Exam: Soft, Normal Bowel Sounds. absent: Tenderness - Extremities Exam Extremities Exam: Full ROM, Normal Inspection. absent: Pedal Edema, Tenderness - Neurological Exam Neurological Exam: Alert, Awake, Oriented x3 - Psychiatric Exam Psychiatric exam: Normal Affect, Normal Mood - Skin Skin Exam: Intact, Normal Color, Warm Assessment and Plan - Assessment and Plan (Free Text) Assessment: (1) Dyspnea Assessment and Plan: 2/2 Flu Duonebs Q4 PRN CXR- no signs of active disease. Received a dose of Ceftriaxone and Azithromycin for empiric treatment in the ER. CURB 65 Score for Pneumonia- 1 which is indicative of low risk of pneumonia severity Having received antibiotics today, will decide whether to continue onwards with abx therapy in light of no signs of infiltrative disease on imaging, no white count. Patient with complaints of clear/white normal colored sputum. Likely viral etiology. Will monitor Pulm consult in place for Dr. Tracey- F/U. F/U sputum cultures. BNP elevated. On Lasix 20 mg PO daily (Home med). Will assess need for echo following Tamiflu 75mg po BID Azithromycin 500mg ivp q24h Solumedrol 40mg q12h (decreased from q8h) Status: Acute (2) Cough Assessment and Plan: Refer to above. Guaifenesin/DM- For cough Status: Acute (3) Renal Tubular Acidosis Decreased Losartan to 50mg po daily from 100mg po daily monitor K (4) HTN (hypertension) Assessment and Plan: Normotensive Monitor Continue home med Norvasc 5 mg daily, Coreg 12.5 mg PO daily. Will switch Valsartan (NF) to Losartan in-house Losartan decreased on 02/18 due to RTA, monitor BP Status: Chronic (5) CHF (congestive heart failure) Assessment and Plan: BNP elevated. Echo: LVEF 61, hypokinetic septum, moderate pulmonary hypertension CXR- no apparent signs of vascular congestion, cardiomegaly or effusions Continue Lasix 20 mg PO daily Status: Chronic (6) Diabetes Assessment and Plan: Accuchecks ISS F/U A1c Status: Chronic (7) Hypercholesteremia Assessment and Plan: Switch Lipitor ( NF) to restor 20 mg HS Lipid Panel: Triglycerides 45, Cholesterol 141, LDL 63, HDL 52 Monitor Status: Acute (8) Hyperkalemia, resolved Assessment and Plan: 2/2 RTA K+ 02/19: 4.3 Patient has received Duonebs treatment. given Kayexalate on 02/18 Decreased Losartan to 50mg po daily from 100mg po daily Monitor Status: Acute (9) Prophylactic measure Assessment and Plan: Heparin Q12 SC Pepcid 20 mg PO daily Status: Acute
[2018-02-19] MEDS ORDERED: Glucagon Recombinant 1 mg Inj IM PRN (18:01)
[2018-02-19] MEDS ORDERED: Dextrose 50% SYRINGE Inj (50 ml) IV PRN (18:01)
[2018-02-19] MEDS ORDERED: (Lantus) Insulin Glargine, Recombinant SC SCH (22:00)
[2018-02-20 07:36] LABS: BASO % 0.1 % (0.0-2.0); HEMOGLOBIN 9.7 g/dL (11.0-16.0); LYMPH # 0.7 K/uL (1.0-4.3); LYMPH % 5.3 % (20.0-40.0); MEAN CELL VOLUME 96.1 fL (81.0-99.0); MEAN CORPUSCULAR HEMOGLOBIN 33.1 pg (27.0-31.0); MEAN CORPUSCULAR HGB CONC 34.5 g/dL (33.0-37.0); MONO # 0.4 K/uL (0.0-0.8); MONO % 3.1 % (0.0-10.0); NEUT # 12.2 K/uL (1.8-7.0); NEUT % 91.5 % (50.0-75.0); PLATELET COUNT 189 K/uL (130-400); RBC 2.93 Mil/uL (3.80-5.20); RED CELL DISTRIBUTION WIDTH 13.3 % (11.5-14.5); WHITE BLOOD COUNT 13.4 K/uL (4.8-10.8)
[2018-02-20 07:48] LABS: ALB/GLOB RATIO 1.5 (1.0-2.1); ALBUMIN 3.5 g/dL (3.5-5.0); CALCIUM 6.8 mg/dl (8.6-10.4)
[2018-02-20] MEDS: (Novolog) Insulin Aspart, Recombinant 100 u/ml 10 ml vial SC SCH ×3 (07:48→18:22)
[2018-02-20 09:41] LABS: BANDS 1 % (0-2); LYMPHOCYTE 5 % (20-40); MONOCYTE 3 % (0-10); NEUTROPHIL 91 % (50-75); PLATELET ESTIMATE NORMAL (NORMAL); TOTAL CELLS COUNTED 100
[2018-02-20 09:43] LABS: HYPOCHROMIC SLIGHT; OVALOCYTES SLIGHT; POLYCHROMIC SLIGHT; TEARDROP CELLS SLIGHT
[2018-02-20] MEDS ORDERED: MethylPREDNISolone 40 mg Vial IV SCH (10:00)
--- NOTE | 2018-02-20 11:43 | CP.PCM.PN ---
Subjective - Date & Time of Evaluation Date of Evaluation: 02/20/18 Time of Evaluation: 11:41 - Subjective Subjective: PGY-[address] Perez Patient seen and examined at bedside. Nursing reports no acute events overnight. Patient says she feels better, coughing less overnight. Producing miminal white/yellow phlegm. Denies chest pain, abdominal pain, nausea, vomiting , constipation, diarrhea. Objective - Vital Signs/Intake and Output Vital Signs (last 24 hours): Temp Pulse Resp BP Pulse Ox 98.2 F 78 20 149/80 95 02/20/18 07:20 02/20/18 07:20 02/20/18 07:20 02/20/18 09:43 02/20/18 07:20 Intake and Output: 02/20/18 02/20/18 06:59 18:59 Intake Total 300 240 Balance 300 240 - Medications Medications: Current Medications Albuterol/Ipratropium (Duoneb 3 Mg/0.5 Mg (3 Ml) Ud) 3 ml INH RQ4 PRN PRN Reason: Wheezing Last Admin: 02/18/18 15:53 Dose: 3 ml Amlodipine Besylate (Norvasc) 5 mg PO DAILY [facility] Last Admin: 02/20/18 09:42 Dose: 5 mg Aspirin (Ecotrin) 81 mg PO DAILY [facility] Last Admin: 02/20/18 09:43 Dose: 81 mg Carvedilol (Coreg) 12.5 mg PO BID [facility] Last Admin: 02/20/18 09:42 Dose: 12.5 mg Dextrose (Dextrose 50% Inj) 0 ml IV STAT PRN; Protocol PRN Reason: Hypoglycemia Protocol Dextrose (Glutose 15) 15 gm PO ONCE PRN; Protocol PRN Reason: Hypoglycemia Protocol Famotidine (Pepcid) 20 mg PO DAILY [facility] Last Admin: 02/20/18 09:50 Dose: 20 mg Furosemide (Lasix) 20 mg PO DAILY [facility] Last Admin: 02/20/18 09:43 Dose: 20 mg Glucagon (Glucagen Diagnostic Kit) 0 mg IM STAT PRN; Protocol PRN Reason: Hypoglycemia Protocol Guaifenesin/Dextromethorphan (Robitussin Dm) 5 ml PO Q4H PRN PRN Reason: Cough Last Admin: 02/19/18 21:50 Dose: 5 ml Heparin Sodium (Porcine) (Heparin) 5,000 units SC Q12 [facility] Last Admin: 02/20/18 09:44 Dose: 5,000 units Azithromycin 500 mg/ Sodium (Chloride) 250 mls @ 166.667 mls/hr IVPB Q24H [facility] PRN Reason: Protocol Last Admin: 02/19/18 13:10 Dose: 166.667 mls/hr Dextrose (Dextrose 5% In Water 1000 Ml) 1,000 mls @ 0 mls/hr IV .Q0M PRN; Protocol; Per Protocol PRN Reason: Hypoglycemia Protocol Insulin Aspart (Novolog) 0 unit SC ACHS [facility] PRN Reason: Protocol Last Admin: 02/20/18 07:48 Dose: 8 units Insulin Glargine (Lantus) 10 unit SC HS [facility] Last Admin: 02/19/18 21:49 Dose: 10 u Losartan Potassium (Cozaar) 50 mg PO DAILY [facility] Last Admin: 02/20/18 09:42 Dose: 50 mg Methylprednisolone (Solu-Medrol) 40 mg IV DAILY [facility] Last Admin: 02/20/18 09:50 Dose: 40 mg Oseltamivir Phosphate (Tamiflu Susp) 30 mg PO BID [facility] PRN Reason: Protocol Stop: 02/21/18 18:01 Rosuvastatin Calcium (Crestor) 10 mg PO [facility] - Labs Labs: 02/20/18 07:16 02/20/18 07:16 - Constitutional Appears: Well, No Acute Distress - Head Exam Head Exam: ATRAUMATIC, NORMAL INSPECTION, NORMOCEPHALIC - Eye Exam Eye Exam: EOMI, Normal appearance, PERRL - ENT Exam ENT Exam: Mucous Membranes Moist - Neck Exam Neck Exam: Full ROM, Normal Inspection. absent: Lymphadenopathy - Respiratory Exam Respiratory Exam: Clear to Ausculation Bilateral, Wheezes, NORMAL BREATHING PATTERN. absent: Rales, Rhonchi Additional comments: Wheezing in LLL - Cardiovascular Exam Cardiovascular Exam: REGULAR RHYTHM, RRR, +S1, +S2. absent: Gallop, Rubs, Murmur - GI/Abdominal Exam GI & Abdominal Exam: Soft, Normal Bowel Sounds. absent: Tenderness - Extremities Exam Extremities Exam: Full ROM, Normal Capillary Refill, Normal Inspection. absent : Pedal Edema, Tenderness Additional comments: pedal pulses present - Neurological Exam Neurological Exam: Alert, Awake, CN II-XII Intact, Normal Gait, Oriented x3 - Psychiatric Exam Psychiatric exam: Normal Affect, Normal Mood - Skin Skin Exam: Dry, Intact, Normal Color, Warm Assessment and Plan - Assessment and Plan (Free Text) Plan: (1) Influenza Assessment and Plan: Admitted to Med/Surg Influenza positive on culture. CXR: no signs of active disease. CURB 65 Score for Pneumonia: 1 which is indicative of low risk of pneumonia severity. Negative for atypicals on culture. Pulm consult in place for Dr. Tracey - help appreciated. -Continue Tamiflu -Continue isolation Tamiflu decreased to 30 from 75mg po BID, renally dosed, to start this pm. (day 4) Azithromycin 500mg ivp q24h (day 4) -Received a dose of ceftriaxone and azithromycin for empiric treatment in the ER. Solumedrol 40mg iv daily (decreased from q12h) Duonebs q4h prn Status: Acute (2) Cough Assessment and Plan: Refer to above. Guaifenesin/DM 5ml po q4h: for cough Status: Acute (3) Renal Tubular Acidosis Losartan reduced to 50 from 100mg po daily monitor K (4) HTN (hypertension) Assessment and Plan: Elevated over course, continue to monitor. Losartan 50mg po daily. -decreased on 02/18 due to RTA, BP remains elevated. Norvasc increased to 10 from 5mg po daily Continue Coreg 12.5mg po daily. Status: Chronic (5) CHF (congestive heart failure) Assessment and Plan: BNP elevated on admission: 1160. Echo (02/17/18): LVEF 61, hypokinetic septum, moderate pulmonary hypertension CXR (02/17/18) no apparent signs of vascular congestion, cardiomegaly or effusions Lasix 20mg po daily Coreg 12.5mg po daily. Losartan 50mg po daily Status: Chronic (6) Diabetes Assessment and Plan: BG over course elevated due steroids Accuchecks Lantus increased to 25 from 10 units HS ISS A1c 7.7 Status: Chronic (7) Hypercholesteremia Assessment and Plan: Crestor decreased to 10 from 20mg HS, renally dosed. Lipid Panel: Triglycerides 45, Cholesterol 141, LDL 63, HDL 52 Monitor Status: Acute (8) Hyperkalemia, resolved Assessment and Plan: 2/2 RTA resolved, monitor Status: Acute (9) Prophylactic measure Assessment and Plan: Heparin Q12 SC SCDs C/I Pepcid 20 mg PO daily Status: Acute Lucina Ardon, PGY-1. Discussed with Dr. Perez.
--- NOTE | 2018-02-20 12:26 | PQF ---
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 Please document the type and acuity (in cludes probable or suspected) Such as: Type: -- Systolic -- Diastolic -- Combined -- Other, please specify Acuity: -- Acute -- Chronic -- Acute on chronic -- Other, please specify Also please document the underlying cause of the CHF (includes probable or suspected) The patient's Clinical Indicators include: Pt. is 87 Y.O. female Hx. of CHF, CAD, NIDDM, PVD. Complaint of cold symptoms x 2 days with malaise , subjective fever , dry cough, chest tightness, intermittent wheezing. Admitted with Pneumonia, Bro nchitis, Chronic CHF, Influenza A, Hyperkalemia. CXR- no apparent signs of vascular congestion, cardiomegaly or effusions PBNP: 1160 Echo: LVEF 61, hypokinetic septum, moderate pulmonary hypertension Low normal left ventricular systolic function. Tx: Lasix 20 mg PO OD, Solumedrol 40 mg IV OD, Tamiflu 30 mg BID, Zithromax 500 mg IV Q 24 H. Can the Dx. of CHF be further specified? If so, please document in your progress notes. Thank you Query created by: Yamilet Fall on 02/20/2018 12:20 PM Electronically signed by: Lucina Ardon 02/20/2018 12:24 PM
[2018-02-20] MEDS: Azithromycin 500 MG in Sodium Chloride 0.9% 250 ML IVPB SCH (13:50)
[2018-02-20] MEDS ORDERED: Albuterol-Ipratrop 3 mg / 0.5 (3 ml) UD INH PRN (14:09)
[2018-02-20] MEDS: Albuterol-Ipratrop 3 mg / 0.5 (3 ml) UD INH PRN (14:38)
--- NOTE | 2018-02-20 16:01 | CP.PCM.PN ---
Subjective - Date & Time of Evaluation Date of Evaluation: 02/20/18 Time of Evaluation: 13:00 - Subjective Subjective: pt seen and examined Cough and shortness of breath much improved lying comfortably in no distress Afebrile Objective - Vital Signs/Intake and Output Vital Signs (last 24 hours): Temp Pulse Resp BP Pulse Ox 98.2 F 78 20 149/80 95 02/20/18 07:20 02/20/18 07:20 02/20/18 07:20 02/20/18 09:43 02/20/18 07:20 Intake and Output: 02/20/18 02/20/18 06:59 18:59 Intake Total 300 240 Balance 300 240 - Medications Medications: Current Medications Albuterol/Ipratropium (Duoneb 3 Mg/0.5 Mg (3 Ml) Ud) 3 ml INH RQ2 PRN PRN Reason: Wheezing Albuterol/Ipratropium (Duoneb 3 Mg/0.5 Mg (3 Ml) Ud) 3 ml INH RQ6 [facility] Amlodipine Besylate (Norvasc) 5 mg PO DAILY [facility] Last Admin: 02/20/18 09:42 Dose: 5 mg Aspirin (Ecotrin) 81 mg PO DAILY [facility] Last Admin: 02/20/18 09:43 Dose: 81 mg Carvedilol (Coreg) 12.5 mg PO BID [facility] Last Admin: 02/20/18 09:42 Dose: 12.5 mg Dextrose (Dextrose 50% Inj) 0 ml IV STAT PRN; Protocol PRN Reason: Hypoglycemia Protocol Dextrose (Glutose 15) 15 gm PO ONCE PRN; Protocol PRN Reason: Hypoglycemia Protocol Famotidine (Pepcid) 20 mg PO DAILY [facility] Last Admin: 02/20/18 09:50 Dose: 20 mg Furosemide (Lasix) 20 mg PO DAILY [facility] Last Admin: 02/20/18 09:43 Dose: 20 mg Glucagon (Glucagen Diagnostic Kit) 0 mg IM STAT PRN; Protocol PRN Reason: Hypoglycemia Protocol Guaifenesin/Dextromethorphan (Robitussin Dm) 5 ml PO Q4H PRN PRN Reason: Cough Last Admin: 02/19/18 21:50 Dose: 5 ml Heparin Sodium (Porcine) (Heparin) 5,000 units SC Q12 [facility] Last Admin: 02/20/18 09:44 Dose: 5,000 units Azithromycin 500 mg/ Sodium (Chloride) 250 mls @ 166.667 mls/hr IVPB Q24H [facility] PRN Reason: Protocol Last Admin: 02/20/18 13:50 Dose: 166.667 mls/hr Dextrose (Dextrose 5% In Water 1000 Ml) 1,000 mls @ 0 mls/hr IV .Q0M PRN; Protocol; Per Protocol PRN Reason: Hypoglycemia Protocol Insulin Aspart (Novolog) 0 unit SC ACHS [facility] PRN Reason: Protocol Last Admin: 02/20/18 13:06 Dose: 12 units Insulin Glargine (Lantus) 25 unit SC HS [facility] Losartan Potassium (Cozaar) 50 mg PO DAILY [facility] Last Admin: 02/20/18 09:42 Dose: 50 mg Methylprednisolone (Solu-Medrol) 40 mg IV DAILY [facility] Last Admin: 02/20/18 09:50 Dose: 40 mg Oseltamivir Phosphate (Tamiflu Susp) 30 mg PO BID [facility] PRN Reason: Protocol Stop: 02/21/18 18:01 Rosuvastatin Calcium (Crestor) 10 mg PO HS [facility] - Labs Labs: 02/20/18 07:16 02/20/18 07:16 - Head Exam Head Exam: ATRAUMATIC, NORMOCEPHALIC - Eye Exam Eye Exam: Normal appearance - ENT Exam ENT Exam: Mucous Membranes Moist - Neck Exam Neck Exam: Normal Inspection - Respiratory Exam Respiratory Exam: Clear to Ausculation Bilateral - Cardiovascular Exam Cardiovascular Exam: REGULAR RHYTHM Assessment and Plan (1) Influenza A Assessment & Plan: Continue present treatment Patient is stable from pulmonary standpoint Status: Acute (2) Cough Status: Acute (3) Dyspnea Status: Acute (4) CHF (congestive heart failure) Status: Chronic
[2018-02-20 17:40] VITALS: BP 159/78; PULSE 69; TEMP 98
[2018-02-20] MEDS ORDERED: Oseltamivir 6 MG/ML PO SCH (18:00)
--- NOTE | 2018-02-20 18:26 | CARD ---
APPROVED REPORT EKG Measurement Heart [id number] <Conclusion> Normal sinus rhythm Left bundle branch block Abnormal ECG
--- NOTE | 2018-02-20 18:34 | CP.PCM.DIS ---
Provider - Provider Date of Admission: 02/17/18 06:21 Attending physician: Arturo Perez Jr, MD Time Spent in preparation of Discharge (in minutes): 60 Diagnosis - Discharge Diagnosis (1) Influenza A Status: Acute Hospital Course - Lab Results Lab Results: Micro Results 02/17/18 04:40 Blood Blood Culture - Preliminary NO GROWTH AFTER 3 DAYS 02/17/18 04:55 Blood Blood Culture - Preliminary NO GROWTH AFTER 3 DAYS 02/17/18 04:50 Urine Urine Culture - Final <10,000 CFU/ML. MULTIPLE SPECIES. PROBABLE CONTAMINATION. Most Recent Lab Values WBC 13.4 K/uL (4.8-10.8) H 02/20/18 07:16 RBC 2.93 Mil/uL (3.80-5.20) L 02/20/18 07:16 Hgb 9.7 g/dL (11.0-16.0) L 02/20/18 07:16 Hct 28.1 % (34.0-47.0) L 02/20/18 07:16 MCV 96.1 fL (81.0-99.0) 02/20/18 07:16 MCH 33.1 pg (27.0-31.0) H 02/20/18 07:16 MCHC 34.5 g/dL (33.0-37.0) 02/20/18 07:16 RDW 13.3 % (11.5-14.5) 02/20/18 07:16 Plt Count 189 K/uL (130-400) 02/20/18 07:16 MPV 9.0 fL (7.2-11.7) 02/20/18 07:16 Neut % (Auto) 91.5 % (50.0-75.0) H 02/20/18 07:16 Lymph % (Auto) 5.3 % (20.0-40.0) L 02/20/18 07:16 [place] % (Auto) 3.1 % (0.0-10.0) 02/20/18 07:16 Eos % (Auto) 0.0 % (0.0-4.0) 02/20/18 07:16 Baso % (Auto) 0.1 % (0.0-2.0) 02/20/18 07:16 Neut # (Auto) 12.2 K/uL (1.8-7.0) H 02/20/18 07:16 Lymph # (Auto) 0.7 K/uL (1.0-4.3) L 02/20/18 07:16 [place] # (Auto) 0.4 K/uL (0.0-0.8) 02/20/18 07:16 Eos # (Auto) 0.0 K/uL (0.0-0.7) 02/20/18 07:16 Baso # (Auto) 0.0 K/uL (0.0-0.2) 02/20/18 07:16 Neutrophils % (Manual) 91 % (50-75) H 02/20/18 07:16 Band Neutrophils % 1 % (0-2) 02/20/18 07:16 Lymphocytes % (Manual) 5 % (20-40) L 02/20/18 07:16 Monocytes % (Manual) 3 % (0-10) 02/20/18 07:16 Toxic Granulation Present 02/19/18 06:45 Platelet Estimate Normal (NORMAL) 02/20/18 07:16 Large Platelets Present 02/19/18 06:45 Giant Platelets Present 02/18/18 07:46 Polychromasia Slight 02/20/18 07:16 Hypochromasia (manual) Slight 02/20/18 07:16 Poikilocytosis (manual Slight 02/19/18 06:45 Anisocytosis (manual) Slight 02/19/18 06:45 Macrocytosis (manual) Slight 02/18/18 07:46 Tear Drop Cells Slight 02/20/18 07:16 Ovalocytes Slight 02/20/18 07:16 [place] Cells Slight 02/18/18 07:46 Schistocytes Slight 02/18/18 07:46 Sodium 137 mmol/L (132-148) 02/20/18 07:16 Potassium 3.8 mmol/L (3.6-5.2) 02/20/18 07:16 Chloride 103 mmol/L (98-107) 02/20/18 07:16 Carbon Dioxide 25 mmol/L (22-30) 02/20/18 07:16 Anion Gap 13 (10-20) 02/20/18 07:16 BUN 38 mg/dL (7-17) H 02/20/18 07:16 Creatinine 1.4 mg/dL (0.7-1.2) H 02/20/18 07:16 Est GFR ( Amer) 43 02/20/18 07:16 Est GFR (Non-Af Amer) 36 02/20/18 07:16 POC Glucose (mg/dL) 399 mg/dL (65-110) H 02/20/18 16:28 Random Glucose 362 mg/dL (65-105) H 02/20/18 07:16 Hemoglobin A1c 7.7 % (4.2-6.5) H 02/18/18 07:46 Lactic Acid 1.3 mmol/L (0.7-2.1) 02/17/18 04:50 Calcium 6.8 mg/dl (8.6-10.4) L 02/20/18 07:16 Phosphorus 2.8 mg/dL (2.5-4.5) 02/20/18 07:16 Magnesium 1.8 mg/dL (1.6-2.3) 02/20/18 07:16 Total Bilirubin 0.8 mg/dL (0.2-1.3) 02/20/18 07:16 AST 38 U/L (14-36) H 02/20/18 07:16 ALT 42 U/L (9-52) 02/20/18 07:16 Alkaline Phosphatase 134 U/L (38-126) H 02/20/18 07:16 NT-Pro-B Natriuret Pep 1160 pg/mL (0-900) H 02/17/18 04:50 Total Protein 5.9 g/dL (6.3-8.3) L 02/20/18 07:16 Albumin 3.5 g/dL (3.5-5.0) 02/20/18 07:16 Globulin 2.4 gm/dL (2.2-3.9) 02/20/18 07:16 Albumin/Globulin Ratio 1.5 (1.0-2.1) 02/20/18 07:16 Triglycerides 45 mg/dL (0-149) 02/18/18 07:46 Cholesterol 141 mg/dL (0-199) 02/18/18 07:46 LDL Cholesterol Direct 63 mg/dL (0-129) 02/18/18 07:46 HDL Cholesterol 52 mg/dL (30-70) 02/18/18 07:46 Urine Color Yellow (YELLOW) 02/17/18 04:50 Urine Clarity Clear (Clear) 02/17/18 04:50 Urine pH 5.0 (5.0-8.0) 02/17/18 04:50 Ur Specific [place] 1.014 (1.003-1.030) 02/17/18 04:50 Urine Protein Negative mg/dL (NEGATIVE) 02/17/18 04:50 Urine Glucose (UA) Normal mg/dL (Normal) 02/17/18 04:50 Urine Ketones Negative mg/dL (NEGATIVE) 02/17/18 04:50 Urine Blood Negative (NEGATIVE) 02/17/18 04:50 Urine Nitrate Negative (NEGATIVE) 02/17/18 04:50 Urine Bilirubin Negative (NEGATIVE) 02/17/18 04:50 Urine Urobilinogen Normal mg/dL (0.2-1.0) 02/17/18 04:50 Ur Leukocyte Esterase Neg [place]/uL (Negative) 02/17/18 04:50 Urine WBC (Auto) 2 /hpf (0-5) 02/17/18 04:50 Urine RBC (Auto) < 1 /hpf (0-3) 02/17/18 04:50 Influenza Typ A,B (EIA) Pos for influenza a (NEGATIVE) H 02/17/18 11:09 Ur L.pneumophila Ag Negative (NEGATIVE) 02/17/18 11:09 Mycoplasma pneumon IgM Negative (NEGATIVE) 02/17/18 11:09 - Hospital Course Hospital Course: Patient seen and examined at approx 7:58 in Rm 356B. Son present bedside. Family is unsure of Code status at this time. CC: I have a cold HPI: 87 year old female with past medical history significant for CHF, DM, PVD s /p femoral bypass, HTN, Hypercholesterolemia and dementia presents with complaints of cough and cold symptoms for the past 4 days. Patient was accompanied with son who helped supplement some of the history. Patient admits to a cough with productive white sputum. She admits to chest discomfort when she coughs. She has been in the area for approximately two weeks- visiting from [place]. She admits to nausea and an episode of non-bloody, nonbillious vomiting overnight. She denies fevers, chills, headaches, abdominal discomfort, or changes in bowel movements at this time. She denies recent sick contacts. PMHx- as stated above PSHx- appendectomy, cardiac cath in 2017 Fam Hx-Brother has DM, Renal disease runs in the family Medications- Ranitidine, Norvasc, Valsartan, Coreg, Lipitor, Fosamax, Januvia, Lasix, ASA Social- Denies tobacco, alcohol or illicit drug use Allergies- NKDA PMD- Unsure of name ( located in [place]) Patient had a CXR that was benign. AN ECHO was done due to Hx CHF. It showed an EF of 61%. Pulm was consulted for continued cough. Alongside positive Influenza culture, antibiotics and Tamiflu were started. Bronchodilators and a short course of steroids were also begun. Guaifenesin/DM were started for cough. Patient developed RTA, so we decreased the Losartan to 50 from 100mg po daily and monitored K. She was normotensive during her stay at the hospital, so we continued home medications which seemed to control it well. During her stay, her blood sugars were in the high 300s/low 400s. A1c was 7.7, so elevation suspected from steroid use. Her hypercholesterolemia was treated with Crestor while in the hospital and seemed well controlled. She had a bout of hyperkalemia that resolved afetr Duonebs and Kayexalate. Standard GI and DVT prophylaxis were given throughout her stay. Patient stable for discharge per Drs. Perez and Alexy. Patient should resume all home medications. Patient should additionally take the medications listed below as prescribed. Patient should make an appointment and follow up with PMD within one week for follow up and blood sugar check. Patient should return to ED immediately if symptoms return or worsen. Instructions discussed with patient who understood and agreed. Newly prescribed medications: Prednisone 5mg tablet. Take 8 tabs a day the first 3 days. Take 6 tabs a day the next 3 days. Take 4 tabs a day the next 3 days. Take 2 tabs a day for the next 3 days. Take 1 tab a day for the last three days. Medication should last you 15 days. Azithromycin 500mg tablet. Take 1 tablet by mouth for one day (will complete 5 days of medication total). Tamiflu 30mg capsule. Take 1 tablet by mouth twice a day for one day (will complete 5 days of medication total). - Date & Time of H&P Date of H&P: 02/20/18 Time of H&P: 18:34 Discharge Exam - Head Exam Head Exam: ATRAUMATIC, NORMOCEPHALIC - Eye Exam Eye Exam: EOMI, Normal appearance, PERRL - ENT Exam ENT Exam: Mucous Membranes Moist - Respiratory Exam Respiratory Exam: NORMAL BREATHING PATTERN Additional comments: wheezing in LLL - Cardiovascular Exam Cardiovascular Exam: REGULAR RHYTHM, +S1, +S2. absent: Gallop, Rubs, Systolic Murmur - GI/Abdominal Exam GI & Abdominal Exam: Normal Bowel Sounds, Soft. absent: Tenderness - Extremities Exam Extremities exam: full ROM, pedal pulses present - Neurological Exam Neurological exam: CN II-XII Intact, Normal Gait, Oriented x3, Reflexes Normal - Psychiatric Exam Psychiatric exam: Normal Affect, Normal Mood - Skin Skin Exam: Dry, Intact, Normal Color, Warm Discharge Plan - Discharge Medications Prescriptions: Azithromycin [Zithromax] 500 mg PO DAILY #1 tab Oseltamivir [Tamiflu SUSP] 30 mg PO BID 2 Days #3 ml predniSONE [predniSONE Tab] 5 mg PO DAILY #63 tab Rosuvastatin Calcium [Crestor] 10 mg PO HS #30 tab - Follow Up Plan Condition: STABLE Disposition: HOME/ ROUTINE Instructions: Heart Failure, Adult (DC), Flu, Adult (DC), Hyperkalemia (DC), Pneumonia, Adult (DC), Shortness of Breath (Dyspnea) (DC), Cough, Adult (DC), Diabetes Type 2 (DC), Hypertension (DC) Additional Instructions: Patient stable for discharge per Drs. Perez and Alexy. Patient should resume all home medications. Patient should additionally take the medications listed below as prescribed. Patient should make an appointment and follow up with PMD within one week for follow up and blood sugar check. Patient should return to ED immediately if symptoms return or worsen. Instructions discussed with patient who understood and agreed. Newly prescribed medications: Prednisone 5mg tablet. Take 8 tabs a day the first 3 days. Take 6 tabs a day the next 3 days. Take 4 tabs a day the next 3 days. Take 2 tabs a day for the next 3 days. Take 1 tab a day for the last three days. Medication should last you 15 days. Azithromycin 500mg tablet. Take 1 tablet by mouth for one day (will complete 5 days of medication total). Tamiflu 30mg capsule. Take 1 tablet by mouth twice a day for one day (will complete 5 days of medication total). Paciente estable para el nereida por Drs. Perez y Alexy. El paciente debe reanudar todos los medicamentos en el hogar. El paciente tambin debe mina los medicamentos enumerados a continuacin segn lo prescrito. El paciente debe programar kyleigh liang y realizar un seguimiento con PMD dentro de kyleigh semana para el seguimiento. El paciente debe regresar a la leanne de urgencias inmediatamente si los sntomas reaparecen o empeoran. Instrucciones discutidas con el paciente que entendi y estuvo de acuerdo. Medicamentos recetados recientemente: Prednisona tableta de 5 mg. [place] 8 tabletas al da los primeros 3 little. [place] 6 pestaas por da los pr ximos 3 little. [place] 4 pestaas por da los prximos 3 little. [place] 2 pestaas por d a harrison los prximos 3 little. [place]acket 1 pestaa al da harrison los ltimos [place] d as. La medicacin debera durar 15 little. Azitromicina 500 mg tableta. [place] 1 tableta por va oral por un da (completar 5 little del total del medicamento). [place] Tamiflu 30mg. [place] 1 tableta por va oral dos veces al da harrison un d a (completar 5 little del total del medicamento). Referrals: Fermín Tracey MD [Staff Provider] - Arturo Perez Jr., MD [Medical Doctor] -
[2018-02-20] MEDS ORDERED: Albuterol-Ipratrop 3 mg / 0.5 (3 ml) UD INH SCH (20:00)
[2018-02-20] MEDS ORDERED: (Lantus) Insulin Glargine, Recombinant SC SCH (22:00)
== END 2018-02-20 19:00 | disposition home or self-care (01) | DRG 194 ==
LOC: C.ER 03:57 → C.6T 06:21 → C.3T 07:00 → C.5S 02-20 10:51
PROVIDERS: ADMIT Internal Medicine; ATTEND Internal Medicine
DX: J10.1 Influenza due to other identified influenza virus with other respiratory manifestations (principal); I50.32 Chronic diastolic (congestive) heart failure; I11.0 Hypertensive heart disease with heart failure; F03.90 Unspecified dementia, unspecified severity, without behavioral disturbance, psychotic disturbance, mood disturbance, and anxiety; E87.5 Hyperkalemia; E11.51 Type 2 diabetes mellitus with diabetic peripheral angiopathy without gangrene; I25.10 Atherosclerotic heart disease of native coronary artery without angina pectoris; I27.20 Pulmonary hypertension, unspecified; N25.89 Other disorders resulting from impaired renal tubular function; J40 Bronchitis, not specified as acute or chronic

== ENCOUNTER 2018-02-22 14:04 | Emergency (ER) | payer MEDICARE, MEDICAID ==
[2018-02-22 14:48] LABS: BASO % 0.4 % (0.0-2.0); EOS % 0.2 % (0.0-4.0); HEMOGLOBIN 10.1 g/dL (11.0-16.0); LYMPH # 1.1 K/uL (1.0-4.3); LYMPH % 10.6 % (20.0-40.0); MEAN CELL VOLUME 96.1 fL (81.0-99.0); MEAN CORPUSCULAR HEMOGLOBIN 33.1 pg (27.0-31.0); MEAN CORPUSCULAR HGB CONC 34.4 g/dL (33.0-37.0); MEAN PLATELET VOLUME 8.9 fL (7.2-11.7); MONO % 9.3 % (0.0-10.0); NEUT # 8.6 K/uL (1.8-7.0); NEUT % 79.5 % (50.0-75.0); NRBC % 0.1 % (0.0-2.0); RBC 3.06 Mil/uL (3.80-5.20); RED CELL DISTRIBUTION WIDTH 13.1 % (11.5-14.5); WHITE BLOOD COUNT 10.8 K/uL (4.8-10.8)
[2018-02-22 14:57] LABS: PROTHROMBIN TIME 11.3 SECONDS (9.7-12.2)
[2018-02-22 15:00] LABS: VENOUS BLOOD GAS BASE EXCESS -1.2 mmol/L (0.0-2.0); VENOUS BLOOD GAS PCO2 39 mmHg (40-60); VENOUS BLOOD GAS PO2 54 mm/Hg (30-55); VENOUS BLOOD PH 7.39 (7.32-7.43)
[2018-02-22 15:00] LABS: SQUAMOUS EPITHIAL 1 /hpf (0-5); URINE BILIRUBIN NEGATIVE (NEGATIVE); URINE BLOOD 1+ (NEGATIVE); URINE CLARITY Clear (Clear); URINE COLOR Yellow (YELLOW); URINE GLUCOSE (UA) 3+ mg/dL (Normal); URINE LEUKOCYTE ESTERASE NEG Leu/uL (Negative); URINE PROTEIN 1+ mg/dL (NEGATIVE); URINE UROBILINOGEN NORMAL mg/dL (0.2-1.0)
[2018-02-22] MEDS ORDERED: Sodium Chloride 0.9% 250 ML IV ONE (15:05)
[2018-02-22 15:13] LABS: CK-MB 1.64 ng/mL (0.0-3.38); TROPONIN I 0.013 ng/mL (0.00-0.120)
[2018-02-22 15:14] LABS: ALB/GLOB RATIO 1.4 (1.0-2.1); ALBUMIN 3.7 g/dL (3.5-5.0); CALCIUM 6.8 mg/dl (8.6-10.4)
[2018-02-22] MEDS ORDERED: (Novolin R) Insulin Human Regular 100 units/ml vial IV ONE (15:27)
[2018-02-22] MEDS ORDERED: (Novolin R) Insulin Human Regular 100 units/ml vial ONE (15:40)
[2018-02-22] MEDS ORDERED: Sodium Chloride 0.9% 1,000 ML ONE (15:40)
--- NOTE | 2018-02-22 16:09 | C.PDOC ---
History Of Present Illness 87 y/o female presents to the ER complaining of elevated blood sugar levels today. Patient states that she noticed her blood sugar level was in the high 300 's at home today. Patient states that she feels a mild headache. Denies having fever, chills, CP, SOB, and diarrhea.Of note, patient was admitted in [facility] for influenza and discharged with Prednisone 2 days ago. Time Seen by Provider: 02/22/18 14:18 Chief Complaint (Nursing): High Blood Sugar History Per: Patient History/Exam Limitations: no limitations Onset/Duration Of Symptoms: Hrs Current Symptoms Are (Timing): Still Present Severity: Moderate Past Medical History Reviewed: Historical Data, Nursing Documentation, Vital Signs Vital Signs: Last Vital Signs Temp 97.7 F 02/22/18 14:08 Pulse 70 02/22/18 14:08 Resp 18 02/22/18 14:08 BP 132/75 02/22/18 14:08 Pulse Ox 100 02/22/18 16:16 - Medical History PMH: CAD, CHF, Dementia, Diabetes, HTN, Hypercholesterolemia, Chronic Kidney Disease Other Surgeries: Hx of surgeries Family History: States: No Known Family Hx - Social History Hx Tobacco Use: No Hx Alcohol Use: No Hx Substance Use: No - Immunization History Hx Tetanus Toxoid Vaccination: No Hx Influenza Vaccination: No Hx Pneumococcal Vaccination: Yes Review Of Systems Except As Marked, All Systems Reviewed And Found Negative. Constitutional: Negative for: Fever, Chills Cardiovascular: Negative for: Chest Pain Respiratory: Negative for: Shortness of Breath Gastrointestinal: Negative for: Vomiting, Diarrhea Neurological: Positive for: Headache Physical Exam - Physical Exam Appears: Non-toxic, No Acute Distress Skin: Normal Color, Warm, Dry Head: Atraumatic, Normacephalic Eye(s): bilateral: Normal Inspection Nose: Normal Oral Mucosa: Moist Neck: Supple Chest: Symmetrical Cardiovascular: Rhythm Regular Respiratory: Normal Breath Sounds, No Rales, No Rhonchi, No Wheezing Gastrointestinal/Abdominal: Normal Exam, Soft, No Tenderness, No Guarding, No Rebound Extremity: Normal ROM Neurological/Psych: Oriented x3, Normal Speech ED Course And Treatment - Laboratory Results Result Diagrams: 02/22/18 14:46 02/22/18 14:46 O2 Sat by Pulse Oximetry: 100 (RA) Pulse Ox Interpretation: Normal Progress Note: Labs and UA ordered. Patient treated with Insulin IV and IV fluids. Disposition Counseled Patient/Family Regarding: Studies Performed, Diagnosis, Need For Followup - Disposition Referrals: [facility] [Outside] Additional Instructions: FOLLOW UP WITH YOUR DOCTOR IN 1-2 DAYS RETURN TO EMERGENCY ROOM IF YOU DEVELOP ANY CONCERNING SYMPTOMS PREDNISONE WILL ELEVATE YOUR BLOOD SUGAR, THIS IS A SIDE EFFECT OF THE MEDICATION SEGUIMIENTO CON GRESHAM MDICO EN 1-2 REYES REGRESE AL KATHERINE DE EMERGENCIA SI DESARROLLA ALGUNOS SNTOMAS CONCERNIENTES LA PREDNISONA ELEVAR GRESHAM AZCAR EN MANDY, ESTO ES UN EFECTO DE LA MEDICACIN Instructions: Hyperglycemia, Adult (DC) Forms: [employer] (Lebanese) Print Language: PERUVIAN - Clinical Impression Clinical Impression: Hyperglycemia, Steroid side effects - Scribe Statement The provider has reviewed the documentation as recorded by the Scribe Carson Juarez Provider Attestation: All medical record entries made by the Scribe were at my direction and personally dictated by me. I have reviewed the chart and agree that the record accurately reflects my personal performance of the history, physical exam, medical decision making, and the department course for this patient. I have also personally directed, reviewed, and agree with the discharge instructions and disposition.
[2018-02-22 17:44] VITALS: BP 133/71; PULSE 73; RESP 20; TEMP 97.8; O2SAT 96
== END 2018-02-22 17:42 | disposition home or self-care (01) ==
LOC: C.ER 14:04
DX: E11.65 Type 2 diabetes mellitus with hyperglycemia (principal); T38.0X5A Adverse effect of glucocorticoids and synthetic analogues, initial encounter; E78.00 Pure hypercholesterolemia, unspecified; I50.9 Heart failure, unspecified; I25.10 Atherosclerotic heart disease of native coronary artery without angina pectoris; I12.9 Hypertensive chronic kidney disease with stage 1 through stage 4 chronic kidney disease, or unspecified chronic kidney disease; N18.9 Chronic kidney disease, unspecified
CPT/HCPCS: 80053; 81001; 82009; 82550; 82553; 82803; 82948; 83930; 84484; 85025; 85610; 85730; 96360; 96361; 99284; J7040